=== PATIENT | female | born 1980 | race Caucasian/White ===

== ENCOUNTER 2021-06-09 00:26 | Day surgery (SDC) | payer OTHER, SELFPAY ==
[2021-06-01 15:21] VITALS: BMI 22.6
--- NOTE | 2021-06-01 15:26 | PC.NURSE ---
Report to the Outpatient Waiting Room, entrance under the green pavilion located off [facility], at time __0900 on date __06/09/21 . OR Time: ___1100 . - You and your visitor will be asked a series of questions to screen for COVID 19 for your protection. - A mask is required within the hospital. Preoperative COVID Testing Requirements: NONE No COVID Test needed if: (proof is required; if not received patient will have Rapid Test prior to entry) - Patient has received COVID Vaccine at least 14 days prior to procedure date or - Patient has positive COVID test result within last 90 days of surgery date. COVID Test needed if above criteria is not met If not COVID vaccinated a COVID test must be conducted within 72 hours of surgery and patient is asked to isolate self from time of testing until procedure. You will go to the [facility] for your COVID testing. The [facility] is located at the corner of [address] [facility]. You will only be called if COVID results are positive and your surgeon may reschedule your elective surgery date. Patients may have clear liquids (water, carbonated beverages, clear teas, apple juice) until 3 hours prior to surgery (0800 AM) with a maximum of 20 ounces. - No food from midnight until time of surgery - Infants may have breast milk until 4 hours before surgery, formula 6 hours prior to surgery. - Children will be allowed to drink immediately following surgery. If applicable, please bring a bottle or sippy cup to assist with drinking. Juice, water, soda, and popsicles are readily available. For infants on formula, please bring formula the day of surgery. Pacifiers are allowed. Take the following medications with a SIP of water the morning of surgery: SERTRALINE Medications to discontinue per physician N/A Date to take last dose Please no make-up, nail telugu, hairspray, perfume, deodorant, or body powder the day of surgery. No jewelry (including any body piercings) or valuables the day of surgery, leave them at home. Please take a shower or bath the night before, or the morning of, surgery with an antibacterial soap. Wear comfortable, loose fitting clothing. Children are encouraged to wear pajamas. - Jewelry must be removed prior to entering the operating room. Rings and piercings that are not removed may be cut off. - The hospital will not accept responsibility for valuables. - Please leave all valuables, including medications, at home the day of surgery. If you are going home after surgery, a licensed tractor trailer moving van driver must drive you home. - NO public transportation without another adult. - We recommend that an adult stay with you for 24 hours following discharge. - We also recommend that you do not drive, make important decision, drink alcoholic beverages, or take any drugs that were not prescribed by your health care provider for at least 24 hours after your discharge time. For Pediatric surgeries, we recommend two adults accompany the child home (only one inside the building at this time). One visitor will be allowed to accompany the patient into the hospital. Patients visitor will be instructed to remain with patient at all times or leave the building. We will allow the visitor to come back to the postoperative area when patient is ready. Follow any additional instructions given to you from your surgeon. Telephone instructions given to PT and asked if any additional questions and then verbalized understanding. Patient advised to call surgeon office or pre surgery nurse liaison [phone] if any additional questions.
[2021-06-09] VITALS (12 sets, daily range): BP systolic 96–135; BP diastolic 51–81; PULSE 60–92; RESP 14–20; TEMP 36.2–37.5; O2SAT 95–100; BMI 22.4
[2021-06-09] MEDS: LACTATED RINGERS 1,000 ML 30 ML IV CONT ×2 (09:40→13:43)
--- NOTE | 2021-06-09 09:41 | SUR.PREOP ---
500ML IVF BOLUS INFUSING PER ORDER
[2021-06-09 09:45] LABS: Urine Cotinine NEGATIVE
--- NOTE | 2021-06-09 09:56 | WPDHPUPDATE1 ---
History and Physical Update Update Date/Time: 06/09/21 09:56 History and Physical has been reviewed, including an updated exam of the patient. There are NO changes in the patient's condition. Risks, benefits, and alternatives have been discussed and questions answered. Patient agrees to proceed with procedure.
--- NOTE | 2021-06-09 10:07 | SUR.PREOP ---
[id number]; RN IN ROOM WHILE DR JOSHI MARKED PT. SPOUSE IN ROOM
--- NOTE | 2021-06-09 10:17 | P.PNAN_ITS ---
Anes - Initial Pre Proc Eval Procedure: Operation Date: 06/09/21 11:00 Proposed Procedures p Abdominoplasty - Adonis Giron MD Date/Time: 06/09/21 10:17 Surgeon: Adonis Giron MD Pre Op Diagnosis: skin laxity Patient Data Age: 40 Gender: F Height: 1.68 m Weight: 63.2 kg Last Vital Signs Temp 36.5 C 06/09/21 09:30 Pulse 60 06/09/21 09:30 Resp 16 06/09/21 09:30 BP 96/54 L 06/09/21 09:30 Pulse Ox 100 06/09/21 09:30 Allergies Allergy/AdvReac Type Severity Reaction Status Date / Time No Known Allergies Allergy Verified 06/09/21 09:12 Home Medications Medication Instructions Recorded Confirmed Type sertraline 100 mg tablet 100 mg PO DAILY 11/10/20 06/09/21 History carisoprodol 350 mg tablet 350 mg PO TID PRN #21 tablet 05/23/21 06/01/21 Rx docusate sodium 100 mg capsule 100 mg PO DAILY #14 cap 05/23/21 06/01/21 Rx ondansetron HCl 4 mg tablet 4 mg PO Q8H #21 tablet 05/23/21 06/01/21 Rx oxycodone-acetaminophen 5 mg-325 1 tablet PO Q6H PRN #30 tablet 05/23/21 06/01/21 Rx mg tablet Laboratory Tests 06/09/21 09:08 Cotinine Negative Patient hx anesthesia problems: none Family hx anesthesia problems: none Results Review: All pre-operative results and documents have been reviewed as part of the pre-operative evaluation. [facility] Past Medical History Medical History Ex-smoker Surgical History Surgical History Hx of lymph node biopsy Family History Family History Sibling Lupus Social History Social History Smoking packs per day: 0.5 Smoking cigarettes per day: 10.0 Years smoked: 10 Smoking pack-years: 5.00 Smoking status: Former smoker Tobacco type: cigarettes Second hand tobacco smoke exposure: No Smoking end date: 05/18/17 Alcohol intake: current Alcohol use details: 2 DRINKS/MONTH Substance use: never Substance use type: does not use Living arrangements: with family Spiritual care concerns: No Anes - Eval Final PreProcedure Day of Procedure 06/09/21 10:17 Patient weight: normal Lungs: clear to auscultation Airway: Mallampati scale class II Neurological: alert and oriented Last oral intake: >/= 8 hours ASA classification: II Emergent: no Anesthetic plan: proceed Anesthesia type and monitoring: general ETT and standard monitoring Results Review: All pre-operative results and documents have been reviewed as part of the pre-operative evaluation. Informed Consent: The patient's anesthetic plan and its attendant risks and benefits were discussed with the patient/family/POA. Questions were solicited and answers provided to the satisfaction of the patient/family/POA.
--- NOTE | 2021-06-09 10:19 | P.OP_ITS ---
Procedure Note - Detailed Date of Procedure 06/09/21 Pre-op Diagnosis skin laxity Post-op Diagnosis Same Procedure Performed Progressive tension abdominoplasty Surgeon Adonis Giron MD Anesthesia General Findings Tissue removed - 2844 grams Description of Procedure They are here today for abdominoplasty. Previously and again today the risks, benefits, alternatives were discussed in extensive detail. I wanted them to be very realistic about the risks involved as well as expectations. We discussed aftercare and what to monitor for. I was very upfront about the risks of wound breakdown leading to loss of skin, open wounds, and need for additional proc edures with permanent abdominal deformity. We discussed DVT/PE risks and management. Made sure answered all of their questions to their satisfaction today and consent was obtained. They were marked in the preoperative holding area with their verification. The patient was taken to the operating room placed supine on the operating table. Anesthesia was provided by anesthesiology. A Berg catheter was started. They were prepped and draped in a standard sterile fashion. A surgical time-out was taken. I placed the patient in a flexed position to verify the upper and lower markings would reach. I then placed supine. A thorough abdominal examination was completed. Stab incisions were made and tumescent solution infiltrated. A 10 blade was used to make the upper incision. I continued dissection down to the level of fascia. Elevated just what was necessary. I then again flexed the bed to verify the upper skin flap would reach the lower markings without tension. Once verified I placed her supine once again and a 10 blade used to make the lower incision. I elevated up to level the umbilicus and left the umbilicus intact on a well-vascularized stalk. The intervening tissue was removed. A 2 mm blunt cannula with 0.5% bupivicaine was injected deep to the fascia bilaterally. I plicated the diastasis recti using 0 PDO stratafix barbed suture. This was in 2 separate layers using 2 separate sutures as well. I repaired around the umbilicus leaving plenty of room for well-vascularized stalk of the umbilicus with 2-0 PDS. I also repaired lateral to the rectus using two layers of 0 PDO stratafix. The patient was flexed and starting from superior to inferior began plication using 2-0 Vicryl to obliterate all space in a standard progressive tension fashion. At the umbilicus I marked out the location of the skin and inset this with 3-0 Monocryl and 4-0 Vicryl. I continued the remainder of the plication using 2-0 Vicryl until I reached my lower planned scar line. I trimmed any excess skin of the upper flap making sure this was a tension-free closure. I then approximated using a 3 point suture with 2-0 Vicryl followed by 3-0 stratafix ,running subcuticular 4-0 Monocryl, and tissue glue. Fluffs and an abdominal binder were placed. The patient was transferred to the bed in a flexed position. Awoken and taken to the PACU without difficulty. All instrument and sponge counts were correct at the end of the case. Estimated Blood Loss 75 Drains No Packing No Pathology None sent Complications No immediate complications Condition Stable Disposition PACU
[2021-06-09] MEDS: ceFAZolin 2 GM/D5W 50 ML 2 GM/50 ML BAG IVPB (10:47)
[2021-06-09] MEDS: TRANEXAMIC ACID 1,000MG/ISO100 1,000 MG/100 ML BAG 200 MG IVPB (10:54)
[2021-06-09] MEDS: LACTATED RINGERS IRRIG 1,000 ML, LIDOCAINE HCL 1% LOCAL INJ 50 ML, EPINEPHrine HCL INJ ... INFILTRATE (11:21)
[2021-06-09] MEDS: fentaNYL CITRATE INJ (*CRX) 100 MCG/2 ML VIAL 25 MCG IV PUSH ×8 (14:06→15:13)
[2021-06-09] MEDS: LACTATED RINGERS 1,000 ML 125 ML IV CONT (16:05)
[2021-06-09] MEDS: ONDANSETRON INJ 4 MG/2 ML VIAL IV PUSH (16:10)
[2021-06-09] MEDS: MORPHINE SULFATE (*CRX) 2 MG/ML INJ IV PUSH ×4 (16:15→22:51)
[2021-06-09] MEDS: carisoprodoL (*CRX) 350 MG TABLET PO ×2 (18:00→23:36)
[2021-06-09] MEDS: DOCUSATE SODIUM 100 MG CAPSULE PO (21:01)
[2021-06-09] MEDS: ENOXAPARIN 40 MG/0.4 ML SYRINGE SUB-Q (21:01)
[2021-06-09] MEDS: oxyCODONE/ACETAMINOPHEN (*CRX) 5-325 MG TABLET PO (21:01)
[2021-06-10] MEDS: ONDANSETRON INJ 4 MG/2 ML VIAL IV PUSH (00:56)
[2021-06-10] MEDS: oxyCODONE/ACETAMINOPHEN (*CRX) 5-325 MG TABLET PO ×2 (02:32→08:40)
[2021-06-10 03:50] VITALS: BP 100/60; PULSE 80; RESP 16; TEMP 37.2; O2SAT 98
[2021-06-10] MEDS: diazePAM (*CRX) 5 MG TABLET PO (03:52)
[2021-06-10] MEDS: carisoprodoL (*CRX) 350 MG TABLET PO ×2 (05:31→11:18)
--- NOTE | 2021-06-10 07:27 | WPDPN ---
Progress Note: A&P Assessment and Plan (1) Skin laxity: Code(s): L57.4 - Cutis laxa senilis Status: Acute Assessment and Plan: She is doing very well after progressive tension abdominoplasty. We will increase activity throughout the day. Plan to discharge home later today when tolerating diet, ambulating, pain controlled. I will see her back. Today we had a more than 30 minute conversation about the care. What monitor for. Actively limitations. Discussed when to proceed to the ER/dial 911. To call with all other questions or concerns at any time. She is going to start ibuprofen and understands to monitor for side effects which were discussed in detail. I will see her back. Subjective Date/time seen: 06/10/21 07:27 Overnight she had some degree of emesis. Her nausea vomiting is much improved today. No fevers or chills. No shortness of breath. No chest pain. No calf tenderness. She did have significant abdominal pain overnight however this is somewhat improving this morning. She has been able ambulate several times. Tolerating some p.o.. Review of Systems Review of Systems: All systems reviewed & are unremarkable except as noted in HPI and below Exam Narrative: Alert and oriented no obvious distress Respiratory on labored Abdomen soft. No signs infection. No hematoma. No seroma. Good color and capillary refill. No calf tenderness. Negative Homans. Objective Data Vital Signs Vital Signs: Vital Signs - 24 hr 06/09/21 09:30 06/09/21 13:43 06/09/21 13:55 Temperature 36.5 C 36.2 C L Pulse Rate 60 92 86 Respiratory Rate 16 16 20 Blood Pressure 96/54 L 129/73 123/76 Pulse Oximetry 100 100 100 06/09/21 14:10 06/09/21 14:25 06/09/21 14:40 Temperature Pulse Rate 86 83 76 Respiratory Rate 18 18 16 Blood Pressure 132/81 114/75 118/63 Pulse Oximetry 100 97 98 06/09/21 14:55 06/09/21 15:10 06/09/21 15:25 Temperature Pulse Rate 72 85 79 Respiratory Rate 16 14 14 Blood Pressure 105/75 135/65 117/51 L Pulse Oximetry 96 95 96 06/09/21 16:00 06/09/21 19:30 06/09/21 23:45 Temperature 37.0 C 37.2 C 37.5 C Pulse Rate 71 79 85 Respiratory Rate 20 16 16 Blood Pressure 123/66 119/60 103/65 Pulse Oximetry 97 100 99 06/10/21 03:50 Temperature 37.2 C Pulse Rate 80 Respiratory Rate 16 Blood Pressure 100/60 Pulse Oximetry 98 Intake/Output Intake/Output: Intake & Output 06/07/21 06/08/21 06/09/21 06/10/21 23:59 23:59 23:59 23:59 Intake Total 2190 600 Output Total 950 250 Balance 1240 350 Meds/Results Medications: Active Medications Generic Name Dose Route Start Last Admin Trade Name Freq PRN Reason Stop Dose Admin Carisoprodol 350 mg 06/09/21 18:00 06/10/21 05:31 Carisoprodol (*Crx) 350 Mg Tablet PO 350 mg Q6HR [place] Administration Diazepam 5 mg 06/09/21 13:28 06/10/21 03:52 Diazepam (*Crx) 5 Mg Tablet PO 5 mg TID PRN Administration Anxiety Docusate Sodium 100 mg 06/09/21 21:00 06/09/21 21:01 Docusate Sodium 100 Mg Capsule PO 100 mg Q12HR [place] Administration Enoxaparin Sodium 40 mg 06/09/21 21:00 06/09/21 21:01 Enoxaparin 40 Mg/0.4 Ml Syringe SUB-Q 40 mg HS [place] Administration Lactated Ringer's 1,000 mls @ 125 mls/hr 06/09/21 13:30 06/10/21 05:31 Lr - Lactated Ringers Iv IV CONT Not Given .Q8H [place] Morphine Sulfate 2 mg 06/09/21 13:28 06/09/21 22:51 Morphine Sulfate (*Crx) 2 Mg/Ml Inj IV PUSH 2 mg Q2H PRN Administration Pain Ondansetron HCl 4 mg 06/09/21 13:28 06/10/21 00:56 Ondansetron Inj 4 Mg/2 Ml Vial IV PUSH 4 mg Q6H PRN Administration Nausea Oxycodone/Acetaminophen 1 - 2 tablet 06/09/21 13:28 06/10/21 02:32 Oxycodone/Acetaminophen (*Crx) 5-325 Mg Tablet PO 2 tablet Q6H PRN Administration Pain Sertraline HCl 100 mg 06/10/21 09:00 Sertraline Hcl 50 Mg Tablet PO DAILY [facility] Labs Labs: Laboratory Results - last
--- NOTE | 2021-06-10 07:32 | P.DS_ITS ---
DS: Admitting Diagnosis Discharge Date 06/10/2021 Admitting Diagnosis Skin laxity DS: Discharge Diagnosis Discharge Diagnosis (1) Skin laxity: Code(s): L57.4 - Cutis laxa senilis Status: Acute DS: Summary Hospital Course Hospital Course: She underwent progressive tension abdominoplasty uneventfully. Postoperatively she has done well. Some degree of nausea and slight emesis. This is improving today. Will plan for discharge home once ambulating, pain controlled, tolerating diet. I will see her back. She has elected to use ambulation is DVT prophylaxis. We discussed the management. She understands what is an emergency and went to proceed to the ER/dial 911. Call with any questions or concerns in the meantime. Time Spent with Patient Time attestation: Total time spent providing and/or coordinating discharge services: 40 Exam Narrative: Alert and oriented no obvious distress Respiratory on labored Abdomen soft. No signs infection. No hematoma. No seroma. Good color and capillary refill. No calf tenderness. Negative Homans. DS: Data Data Completed and Pending Labs on day of discharge: Labs from last 24 hours 06/09/21 09:08 Cotinine Negative Discharge Plan Discharge Patient Disposition: Home, Self-Care Discharge Instructions: POST OPERATIVE DISCHARGE INSTRUCTIONS ADONIS GIRON M.D. [facility] [address] [place] [address] * No driving for 24 hours after anesthesia and while you are taking pain medication. * Take all prescribed medication as directed * Diet as tolerated. * No lifting or activity that raises blood pressure for 48 hours. * Regular walking / ambulation. * May shower in 24 hours.. Once you shower do not take pain medication before showering as the combination of medication and heat may cause you to feel dizzy or pass out. * No pools or tubs for 2 weeks. * Call with any questions or concerns. * Slowly stand up straight as tolerated over the week. * No straining / lifting more than 20 pounds for 6 weeks. * Dressing Care: Abdominal binder 23 hours per day. If you have any questions or concerns, please call the office . If it is after hours you will be directed to the sex offender treatment professional exchange. Shortness of breath, chest pain, or other medical emergency dial 911 / proceed to the Emergency Room. Stand Alone Forms: General Discharge Instructions Follow-up/Referrals: Adonis Giron MD [Physician] - 1 Week Discharge Medications: New ibuprofen 600 mg Tablet 600 mg PO Q6H 4 Days Qty: 16 RF: 0 Continued sertraline [Zoloft] 100 mg tablet 100 mg PO DAILY RF: 0 docusate sodium [Colace] 100 mg capsule 100 mg PO DAILY Qty: 14 RF: 0 ondansetron HCl 4 mg tablet 4 mg PO Q8H Qty: 21 RF: 0 carisoprodol [Soma] 350 mg tablet 350 mg PO TID PRN (Reason: muscle pain) Qty: 21 RF: 0 oxycodone-acetaminophen [Percocet] 5-325 mg tablet 1 tablet PO Q6H PRN (Reason: pain) Qty: 30 RF: 0
[2021-06-10] MEDS: DOCUSATE SODIUM 100 MG CAPSULE PO (08:39)
[2021-06-10] MEDS: IBUPROFEN 600 MG TABLET PO (08:39)
[2021-06-10] MEDS: SERTRALINE HCL 50 MG TABLET 100 MG PO (08:41)
[2021-06-10 09:00] VITALS: BP 99/58; PULSE 75; RESP 16; TEMP 36.8; O2SAT 100
== END 2021-06-10 11:35 | disposition home or self-care (01) ==
LOC: ANHSURGERY 10:21 → ANHOB2 15:38
PROVIDERS: Visit Provider Surgery Plastic and Reconstructive Surgery
PROC: (CPT 15830; principal; 2021-06-09 11:00)
DX: Z41.1 Encounter for cosmetic surgery (principal); L57.4 Cutis laxa senilis; Z87.891 Personal history of nicotine dependence; Z79.899 Other long term (current) drug therapy
CPT/HCPCS: 15830; 15847; 80307; 99199; A9270; J0171; J0690; J1100; J1170; J1650; J2250; J2270; J2405; J2704; J3010; J7120